=== PATIENT | male | born 1980 | race Caucasian/White ===

== ENCOUNTER 2023-07-12 10:14 | Emergency (ER) | payer OTHER ==
[~2023-07-12] VITALS: Ht 180.3 cm; Wt 77.1 kg
[2023-07-12 10:20] VITALS: BP 142/74
[2023-07-12] MEDS ORDERED: Zithromax250 MG PO (10:27)
== END 2023-07-12 10:30 | disposition home or self-care (01) ==
LOC: ER 10:14 → EDSEX 10:14 → ER 10:30
DX: J32.9 Chronic sinusitis, unspecified (principal); B97.89 Other viral agents as the cause of diseases classified elsewhere
CPT/HCPCS: 99282